=== PATIENT | female | born 1980 | race African-American/Black ===

== ENCOUNTER 2021-08-06 09:42 | Observation (INO) | payer OTHER ==
[2021-07-31 10:30] LABS: Basophils # (Auto) 0.1 K/mm3 (0.0-0.1); Eosinophils # (Auto) 0.2 K/mm3 (0.0-0.4); Eosinophils % (Auto) 3.5 % (0.0-4.3); Hematocrit 33.5 % (30.3-42.9); Hemoglobin 11.1 gm/dl (10.1-14.3); Lymphocytes # (Auto) 1.2 K/mm3 (1.2-5.4); Lymphocytes % (Auto) 21.7 % (13.4-35.0); Mean Corpuscular HGB Conc 33 % (30-34); Mean Corpuscular Volume 86 fl (79-97); Monocytes # (Auto) 0.2 K/mm3 (0.0-0.8); Monocytes % (Auto) 4.6 % (0.0-7.3); Platelet Count 243 K/mm3 (140-440); Red Blood Count 3.91 M/mm3 (3.65-5.03); Red Cell Distribution Width 15.7 % (13.2-15.2)
--- NOTE | 2021-07-31 12:40 | Anesthesia Consultation ---
Anesthesia Consult and Med Hx Date of service: 08/06/21 - Airway Anesthetic Teeth Evaluation: Good, Chipped (cracked/loose lower left wisdom tooth) ROM Head & Neck: Adequate Mental/Hyoid Distance: Adequate Mallampati Class: Class III Intubation Access Assessment: Possibly Difficult - Pulmonary Exam CTA: Yes - Cardiac Exam Cardiac Exam: RRR - Pre-Operative Health Status ASA Pre-Surgery Classification: ASA2 Proposed Anesthetic Plan: General Nerve Block: TAP - Pulmonary Hx Smoking: No Hx Respiratory Symptoms: No - Cardiovascular System Hx Hypertension: No - Central Nervous System CVA: No - Endocrine Hx Renal Disease: No Hx Liver Disease: No (fatty liver) Hx Insulin Dependent Diabetes: No Hx Non-Insulin Dependent Diabetes: No Hx Thyroid Disease: No - Hematic Hx Anemia: Yes (no hx blood transfusion) Hx Sickle Cell Disease: No - Other Systems Hx Obesity: Yes (BMI 32) - Additional Comments Anesthesia Medical History Comments: No hx anesthetic complications. Family in room for Swedish translation per patient request.
--- NOTE | 2021-08-06 07:41 | History and Physical Report ---
History of Present Illness Date of examination: 08/04/21 Chief complaint: Dysfunctional Uterine Bleeding History of present illness: Pt is a 41 year old female who present for definitive management of dysfunctional uterine bleeding and uterine fibroids. She had a benign endometrial biopsy on 05/20/21. Pt desires bilateral salpingo-oophorectomy at the time of hysterectomy. Past History Past Medical History: high cholesterol, hematologic disorders (H/o anemia ) Past Surgical History: myomectomy (myomectomy on 02/20/2019; vaginal approach ) [employer] History: fibroids Family/Genetic History: hypertension, cancer Social history: no significant social history - Obstetrical History : 5 Para: 5 Hx # Term Pregnancies: 5 Number of Pregnancies: 0 Spontaneous Abortions: 0 Induced : 0 Number of Living Children: 5 Medications and Allergies Allergies Allergy/AdvReac Type Severity Reaction Status Date / Time No Known Allergies Allergy Unverified 07/28/21 14:33 Home Medications Medication Instructions Recorded Confirmed Last Taken Type Iron 1 tab PO DAILY 07/28/21 07/28/21 Unknown History Active Meds: Active Medications Acetaminophen (Acetaminophen 500 Mg Tab) 1,000 mg PO PREOP ARSH Celecoxib (Celecoxib 200 Mg Cap) 200 mg PO PREOP NR Stop: 08/06/21 23:59 Fentanyl (Fentanyl 100 Mcg/2 Ml Inj) 100 mcg IV ONCE PRN PRN Reason: sedation for nerve block Gabapentin (Gabapentin 300 Mg Cap) 300 mg PO PREOP NR Stop: 08/06/21 23:59 Lactated Ringer's (Lactated Ringers) 1,000 mls @ 100 mls/hr IV DIRECT ARSH Stop: 08/06/21 23:59 Midazolam HCl (Midazolam 2 Mg/2 Ml Inj) 2 mg IV PREOP NR Stop: 08/06/21 23:59 Scopolamine (Scopolamine Transdermal Patch 72 Hr) 1 each TD PREOP NR Stop: 08/06/21 23:59 Review of Systems All systems: negative - Vital Signs Vital signs: Vital Signs Temp Pulse Resp BP Pulse Ox 98.1 F 77 20 118/70 97 07/31/21 09:45 07/31/21 09:45 07/31/21 09:45 07/31/21 09:45 07/31/21 09:45 Temp Pulse Resp BP Pulse Ox 98.1 F 77 20 118/70 97 07/31/21 09:45 07/31/21 09:45 07/31/21 09:45 07/31/21 09:45 07/31/21 09:45 - Physical Exam Breasts: Positive: deferred Cardiovascular: Regular rate Lungs: Positive: Clear to auscultation Abdomen: Positive: soft (obese) Uterus: Positive: normal size Extremities: Positive: normal Results Result Diagrams: 07/31/21 09:50 All other labs normal. Assessment and Plan A: Dysfunctional Uterine Bleeding Fibroid Uterus Desires concurrent bilateral salpingo-oophorectomy P: Proceed with robotic assisted laparoscopic hysterectomy, bilateral salpingo- oophorectomy, possible exploratory laparotomy and other indicated procedures
[~2021-08-06 09:42] MED LIST: ACETAMINOPHEN 500 MG TAB PO SCH; CELECOXIB 200 MG CAP PO NR; GABAPENTIN 300 MG CAP PO NR; LACTATED RINGERS 1,000 ML IV SCH; MIDAZOLAM 2 MG/2 ML INJ IV NR; SCOPOLAMINE TRANSDERMAL PATCH 72 HR TD NR; ceFAZolin/Water 2 GM/20 ML 2 GM/20 ML SYRINGE IV NR; fentaNYL 100 MCG/2 ML INJ IV PRN
[2021-08-06 10:29] LABS: Blood Urea Nitrogen 11 mg/dL (7-17); Calcium 8.4 mg/dL (8.4-10.2); Hemolysis Index 6
[2021-08-06 10:31] LABS: BUN/Creatinine Ratio 22
[2021-08-06] MEDS ORDERED: BUPIVACAINE/PF (0.25%) 2.5 MG/ML 30 ML VIAL INFILTRATI ONE (10:36)
[2021-08-06] MEDS ORDERED: ONDANSETRON 4 MG/2 ML INJ IV PRN ×2 (10:36→18:00)
[2021-08-06] MEDS ORDERED: dexAMETHasone 4 MG/ML VIAL ONE (10:36)
[2021-08-06] MEDS ORDERED: HYDROmorphone 1 MG/1 ML INJ IV PRN ×2 (10:36)
[2021-08-06] MEDS ORDERED: METHYLENE BLUE 50 MG/10 ML AMP ONE (10:54)
[2021-08-06] MEDS ORDERED: NEOMY 40 MG/POLYMYXIN B 200,000 UNITS/ML (GU) AMPULE IR ONE ×2 (10:54→13:46)
--- NOTE | 2021-08-06 11:00 | Anesthesia Day of Surgery ---
Anesthesia Day of Surgery - Day of Surgery Patient Examined: Yes Patient H&P Reviewed: Yes Patient is NPO: Yes
[2021-08-06] MEDS ORDERED: MIDAZOLAM 2 MG/2 ML INJ IV ONE (11:07)
[2021-08-06] MEDS ORDERED: dexAMETHasone 20 MG/5 ML VIAL ONE (11:23)
[2021-08-06] MEDS ORDERED: ONDANSETRON 4 MG/2 ML INJ ONE (11:23)
[2021-08-06] MEDS ORDERED: SUCCINYLCHOLINE CHLORIDE 200 MG/10 ML INJ MDV ONE (11:23)
[2021-08-06] MEDS ORDERED: ROCURONIUM 50 MG/5 ML INJ IV ONE (11:23)
[2021-08-06] MEDS ORDERED: fentaNYL 100 MCG/2 ML INJ ONE (11:24)
[2021-08-06] MEDS ORDERED: ePHEDrine SULFATE 50 MG/1 ML INJ ONE (11:24)
[2021-08-06] MEDS ORDERED: propofoL 200 MG/20 ML VIAL IV ONE (11:24)
[2021-08-06] MEDS ORDERED: HYDROmorphone 1 MG/1 ML INJ ONE (11:24)
[2021-08-06] MEDS ORDERED: SODIUM CHLORIDE 0.9% IRR 1,500 ML BOTTLE IR ONE (13:45)
[2021-08-06] MEDS ORDERED: SODIUM CHLORIDE 0.9% IRRIG SOLN 2000 ML IR ONE (13:46)
[2021-08-06] MEDS ORDERED: GLYCOPYRROLATE 0.4 MG/2 ML INJ ONE (15:34)
[2021-08-06] MEDS ORDERED: NEOSTIGMINE 10MG/10 ML INJ MDV ONE (15:34)
[2021-08-06] MEDS ORDERED: KETOROLAC 30 MG/1 ML INJ ONE (15:35)
--- NOTE | 2021-08-06 15:40 | Operative Report ---
Operative Report Operative Report: Date of surgery: August 06, 2021 Preoperative Diagnosis: 1) Dysfunctional Uterine Bleeding 2) Fibroid Uterus 3) Obesity Postoperative diagnoses: Same Procedure: Robotic-assisted Total Laparoscopic Hysterectomy with Bilateral Salpingo-Oophorectomy Surgeon: Chayito Pompa M.D. Layer Off: Lexi Pompa Anesthesia: GETA Findings: 1) Anterverted uterus that sounded to 11 cm, boggy 2) Normal appearing ovaries and fallopian tubes Estimated blood loss: 100 mL Drains: Glover to gravity Specimen: Uterus, cervix, bilateral ovaries and fallopian tubes to pathology Complications: None Disposition: PACU Indication: This patient is a 41-year-old female -0-0-5 who presents for definitive management of dysfunctional uterine bleeding and uterine fibroids. Procedure: After the risks, benefits, alternatives, and complications of the procedure were explained to the patient she gave informed consent for the procedure. She was subsequently taken to the operating room where general endotracheal anesthesia was found to be adequate. She was then placed in the dorsal lithotomy position and prepped and draped in a normal sterile fashion. A timeout was performed. A Glover catheter was placed to drain the bladder. A bivalve speculum was placed in the patient's vagina and a single-tooth tenaculum placed on the anterior lip of the cervix for traction. The uterus was sounded to 11 cm. A stay suture with 0-vicryl was placed at 3 o'clock on the anterior cervix. A Callision uterine manipulator was placed, and the bivalve speculum was then removed. A warm laparotomy sponge was then placed in the vagina. Attention was then turned to the patient's abdomen where a 12 mm supraumbilical skin incision was then made. A Veress needle was placed into the peritoneal cavity with entry confirmed with a saline drop test. The peritoneal cavity was then insufflated with CO2 gas to a pressure of 15 mm Hg. The 12 mm trocar was then placed under direct visualization. Two additional 8 mm robotic trocars were placed on the patient's left and right lateral side just opposite of the supraumbilical trocar. An additional 5 mm right lateral trocar was then placed as the accessory port. The supraumbilical 12 mm fascial incision was reapproximated with 0 Vicryl suture using the Grant Medeiros device. The patient was then placed in steep Trendelenburg. The da Lexi robot was then engaged. A fenestrated forcep was placed in arm 2 and a vessel sealer was placed in arm 1. General survey of the abdomen and pelvis revealed an anteverted uterus and normal appearing ovaries and fallopian tubes. The surgeon then transferred to the surgical console. The infudibulopelvic ligament was isolated on the right. The vessel sealer was used to coagulate the infundibulopelvic ligament which was then transected. Next the vessel sealer was used to coagulate and transect the mesosalpinx. The round ligament was then coagulated and transected also. The vesicouterine peritoneum was then entered from the patient's right side. The right uterine vessels were then coagulated and transected with the vessel sealer. Attention was then turned to the patient's left side where the infundibulopelvic ligament and mesosalpinx were again isolated coagulated and transected. The vesicouterine peritoneum was then entered from the left and joined in the midline with the vessel sealer. The peritoneum was reflected off of the lower uterine segment. The left uterine vessels were then coagulated and transected with the vessel sealer. A posterior colpotomy was created with the monopolar scissors. The incision was continued circumferentially until anterior colpotomy was created. The uterus, cervix , ovaries and tubes were then delivered through the vagina and a warm laparotomy sponge was placed in the vagina to maintain the pneumoperitoneum. The vaginal cuff was then reapproximated in a running fashion with V Loc suture. Irrigation of the pelvis was performed. Luc was applied to the vaginal cuff. At this time the procedure was ended. The [employer] robot was undocked. The insuffliation was released and the trocars were removed atraumatically. The skin incisions were then reapproximated with 4-0 Monocryl and skin glue. The patient was then successfully extubated and taken to the PACU in stable condition. All instrument, lap and needle counts were correct x2.
--- NOTE | 2021-08-06 16:38 | Post Anesthesia Evaluation ---
- Post Anesthesia Evaluation Patient Participated: Yes Airway Patent: Yes Stable Respiratory Function: Yes Nausea/Vomiting: No Temp > 96.8F: Yes Pain Manageable: Yes Adequeate Hydration: Yes Anesthesia Complications: No Block Receding Appropriately: Yes Patient on Ventilator: No
[2021-08-06] MEDS ORDERED: NALOXONE 0.4 MG/1 ML INJ IV PRN (18:00)
[2021-08-06] MEDS ORDERED: oxyCODONE /ACETAMINOPHEN 5-325MG TAB PO PRN (18:00)
[2021-08-06] MEDS ORDERED: MORPHINE 2 MG/1 ML INJ IV PRN (18:00)
[2021-08-06] MEDS ORDERED: IBUPROFEN 800 MG TAB PO PRN (18:00)
[2021-08-06] MEDS ORDERED: MORPHINE 4 MG/1 ML INJ IV PRN (18:00)
[2021-08-06] MEDS ORDERED: D5W/0.45% NACL/KCL 20 MEQ 20 MEQ/1,000 ML BAG IV SCH (18:30)
[2021-08-06] MEDS: ceFAZolin/NS 1 GM/50 ML 1 GM/50 ML BAG IV SCH (18:50)
[2021-08-06] MEDS: ACETAMINOPHEN 325 MG TAB PO PRN (21:04)
[2021-08-07] MEDS: ceFAZolin/NS 1 GM/50 ML 1 GM/50 ML BAG IV SCH (01:51)
[2021-08-07] MEDS: ACETAMINOPHEN 325 MG TAB PO PRN (05:29)
[2021-08-07 07:29] LABS: Hematocrit 32.5 % (30.3-42.9); Hemoglobin 10.3 gm/dl (10.1-14.3)
[2021-08-07 07:38] LABS: Blood Urea Nitrogen 10 mg/dL (7-17); Calcium 8.2 mg/dL (8.4-10.2); Hemolysis Index 5
[2021-08-07 07:41] LABS: BUN/Creatinine Ratio 17
--- NOTE | 2021-08-07 09:08 | Post Anesthesia Evaluation ---
- Post Anesthesia Evaluation Patient Participated: Yes Airway Patent: Yes Stable Respiratory Function: Yes Nausea/Vomiting: No Temp > 96.8F: Yes Pain Manageable: Yes Adequeate Hydration: Yes Anesthesia Complications: No Block Receding Appropriately: Yes Patient on Ventilator: No Other Comments: Night went well. No significant pain. Ambulated in the morning, drank 2 cups of water. Started to have some pain in the right upper quadrant. Attending MD at the bedside. Given 4 mg of Morphine IV. Continue observation
--- NOTE | 2021-08-07 09:15 | Progress Note ---
Assessment and Plan A: Postoperative day #1 status post robotic assisted total laparoscopic hysterectomy, bilateral salpingo-oophorectomy Poor pain control Left eye pain P: Optimize pain medication regimen Neurology consult Closely monitor clinical status Subjective - Subjective Date of service: 08/07/21 Principal diagnosis: s/p robotic hysterectomy/BSO Interval history: Immediately prior to entry into the patient room she called out. Upon visualization of the patient she has holding her right hand under her rib cage and saying that she has pain when she takes deep breaths in. Vital signs were taken immediately and are noted to be stable. An EKG was ordered and was noted to be normal. Upon review of the medical record the patient has received no pain medication other than Tylenol since her surgery yesterday. She was given morphine 4 mg IV and was observed at the bedside. She had improvement in her pain after about 10 minutes and was able to speak normally. The patient also reports that yesterday after she woke up from surgery she had edema and pain in the left side of her face surrounding the orbit. Initially she was unable to open her left eye but now she is able to. Patient reports: other (Per HPI) Objective - Vital Signs Latest vital signs: Vital Signs Temp Pulse Resp BP BP Pulse Ox 08/07/21 07:17 98.0 F 89 20 113/65 96 08/07/21 04:37 98.7 F 96 H 18 105/60 95 08/07/21 00:50 98.8 F 112 H 18 100/59 94 08/06/21 20:09 98.9 F 117 H 18 150/90 96 08/06/21 20:00 99 08/06/21 17:15 98.4 F 91 H 18 140/92 99 08/06/21 17:00 98.4 F 89 18 140/92 99 08/06/21 16:45 85 18 150/94 96 08/06/21 16:30 86 17 143/87 100 08/06/21 16:15 78 17 138/85 100 08/06/21 16:04 76 17 134/82 100 08/06/21 15:59 81 16 125/77 100 08/06/21 15:54 98.0 F 97 H 12 116/76 100 08/06/21 12:01 16 08/06/21 12:00 65 16 123/76 100 08/06/21 11:45 66 14 120/82 99 08/06/21 11:19 70 14 127/76 99 08/06/21 11:15 18 08/06/21 11:14 63 16 117/75 99 08/06/21 11:09 76 16 124/72 99 08/06/21 11:04 78 18 128/78 98 08/06/21 10:15 18 08/06/21 10:00 98.1 F 89 18 131/85 98 Intake and Output 08/06/21 08/07/21 08/07/21 22:59 06:59 14:59 Intake Total 50 Output Total 250 800 Balance -200 -800 Intake: IV 50 ANCEF/NS 1 GM/50 ML 1 gm 50 In 50 ml @ 100 mls/hr IV Q8H [facility] Rx#:[id number] Output: Urine 250 800 Indwelling 400 Indwelling Catheter 400 Other: Total, Output Amount 400 Voiding Method Indwelling Catheter Weight 77.111 kg - Exam Breasts: Present: deferred Abdomen: Present: soft, tenderness. Absent: distention Extremities: Present: normal. Absent: edema Incision: Present: intact - Labs Labs: Abnormal lab results 08/06/21 08/07/21 Range/Units 09:55 07:00 Carbon Dioxide 19 L 21 L (22-30) mmol/L Creatinine 0.5 L (0.6-1.2) mg/dL Glucose 119 H 146 H (65-100) mg/dL Calcium 8.2 L (8.4-10.2) mg/dL
--- NOTE | 2021-08-07 10:41 | Electrocardiograph Report ---
[facility] Test Date: 2021-08-06 Test Time: 10:49:04 Pat Name: JESSEE Buckleypartment: Room: 2105 Gender: F Sales Property Manager: MACARENA : 1980 Requested By: ZBIGNIEW LYNN Order Number: [id number] Reading MD: Dread Luo Measurements Intervals Coleman Rate: 73 P: 21 WV: 182 QRS: 3 QRSD: 101 T: 5 QT: 383 QTc: 422 Interpretive Statements Sinus rhythm No previous ECG available for comparison Electronically Signed On 08-07-2021 10:40:53 EST by Dread Luo
[2021-08-07] MEDS: KETOROLAC 30 MG/1 ML INJ IV SCH ×3 (10:53→22:37)
[2021-08-07] MEDS: PANTOPRAZOLE 40 MG INJ IV SCH (10:54)
[2021-08-08] MEDS: KETOROLAC 30 MG/1 ML INJ IV SCH (03:26)
--- NOTE | 2021-08-08 09:02 | Electrocardiograph Report ---
[facility] Test Date: 2021-08-07 Test Time: 08:27:16 Pat Name: JESSEE Buckleypartment: Room: 2105 1 Gender: F Radio Installer: MACARENA : 1980 Requested By: ZBIGNIEW LYNN Order Number: [id number] Reading MD: Dread Luo Measurements Intervals Plessis Rate: 82 P: 30 MS: 183 QRS: 31 QRSD: 90 T: 14 QT: 363 QTc: 423 Interpretive Statements Sinus rhythm Compared to ECG 08/06/2021 10:49:04 No significant changes Electronically Signed On 08-08-2021 9:02:24 EST by Dread Luo
[2021-08-08] MEDS: PANTOPRAZOLE 40 MG INJ IV SCH (10:39)
--- NOTE | 2021-08-08 14:12 | Progress Note ---
Assessment and Plan - Patient Problems (1) Dysfunctional uterine bleeding Current Visit: Yes Status: Acute Plan to address problem: Patient demonstrating clinical improvement Discharge home Subjective - Subjective Date of service: 08/08/21 Principal diagnosis: s/p robotic hysterectomy/BSO Interval history: Patient reports improvement in her pain. She is having minor abdominal pain but is tolerating her diet without complication. Patient reports: appetite normal, voiding normally, pain well controlled Objective - Vital Signs Latest vital signs: Vital Signs Temp Pulse Resp BP Pulse Ox 08/08/21 11:12 98.1 F 82 20 117/82 95 08/08/21 08:42 16 97 08/08/21 07:20 98.1 F 20 129/76 08/08/21 04:45 98.3 F 65 20 118/83 98 08/07/21 23:43 98.4 F 76 20 113/67 96 08/07/21 19:34 98.5 F 78 20 109/72 95 08/07/21 19:30 98 08/07/21 16:12 97.9 F 77 20 95/68 96 Intake and Output 08/07/21 08/08/21 08/08/21 22:59 06:59 14:59 Intake Total 320 100 Output Total 300 Balance 20 100 Intake: Oral 320 100 Output: Urine 300 Indwelling Catheter 300 Other: Total, Intake Amount 120 100 Total, Output Amount 300 Voiding Method Toilet Toilet # Voids Indwelling Catheter 1 Void 1 1 1 - Exam Abdomen: Present: normal appearance, soft
--- NOTE | 2021-08-08 14:14 | Discharge Summary ---
Providers - Providers Date of Admission: 08/06/21 15:44 Date of discharge: 08/08/21 Attending physician: ZBIGNIEW LYNN Primary care physician: JESUS DENSON Hospitalization Reason for admission: other (Dysfunctional uterine bleeding) Procedure: other (Robotic hysterectomy and bilateral salpingo-oophorectomy) Incision: normal Discharge diagnosis: IUP at term delivered (Dysfunctional uterine bleeding) Hospital course: The patient was admitted the day of surgery underwent a robotic hysterectomy. Postoperative course was complicated by difficulty with pain management. The patient subsequently had improvement of symptoms and was discharged home. Condition at discharge: Good Disposition: 01 HOME / SELF CARE / HOMELESS - Discharge Diagnoses (1) Dysfunctional uterine bleeding Status: Acute Plan - Provider Discharge Summary Activity: no sex for 6 weeks, no heavy lifting 4 weeks, no strenuous exercise Diet: routine Instructions: routine Additional instructions: [] Smoking cessation referral if applicable(refer to patient education folder for contact #) [] Refer to [facility] Booklet Call your doctor immediately for: * Fever > 100.5 * Heavy vaginal bleeding ( >1 pad per hour) * Severe persistent headache * Shortness of breath * Reddened, hot, painful area to leg or breast * Schedule postoperative follow-up in 4 weeks - Follow up plan Forms: Work/School Release Form
[2021-08-08 15:59] VITALS: BP 107/74
== END 2021-08-08 14:50 | disposition home or self-care (01) ==
LOC: OR 09:42 → OB 15:44
PROVIDERS: ADMIT Obstetrics & Gynecology; ATTEND Obstetrics & Gynecology
DX: D25.9 Leiomyoma of uterus, unspecified (principal); Z20.822 Contact with and (suspected) exposure to COVID-19; N93.8 Other specified abnormal uterine and vaginal bleeding; E66.9 Obesity, unspecified; E78.00 Pure hypercholesterolemia, unspecified; H57.12 Ocular pain, left eye; Z79.899 Other long term (current) drug therapy; Z98.890 Other specified postprocedural states; Z68.33 Body mass index [BMI] 33.0-33.9, adult
CPT/HCPCS: 36415; 58573; 64450; 80048; 84703; 85014; 85018; 85025; 86850; 86900; 86901; 88307; 93005; 96365; 96366; 96375; 96376; C9113; G0378; J0330; J0690; J1100; J1170; J1815; J1885; J2250; J2270; J2405; J2704; J2710; J3010; J3480; J3490; J7120; Q9968; S2900; U0003

== ENCOUNTER 2022-01-18 22:35 | Emergency (ER) | payer SELFPAY ==
[2022-01-18] MEDS ORDERED: TETANUS,DIPHTHERIA TOXOID ADULT 0.5 ML INJ IM ONE (23:39)
[2022-01-18] MEDS ORDERED: ACETAMINOPHEN 325 MG TAB PO ONE (23:39)
[2022-01-19] MEDS ORDERED: TETANUS,DIPH,PERTUSS(ACELL) VACCINE 0.5 ML SYRINGE IM ONE (01:52)
[2022-01-19] MEDS ORDERED: KETOROLAC 10 MG TAB PO ONE (01:52)
[2022-01-19] MEDS ORDERED: AMOXICILLIN/K CLAV 875/125MG TAB PO ONE (01:52)
--- NOTE | 2022-01-19 03:14 | Emergency Department Report ---
ED Animal Bite HPI - General Chief Complaint: Laceration/Recheck/Suture Stated Complaint: DOG BITE TORE FINGER Time Seen by Provider: 01/19/22 00:40 Source: patient Mode of arrival: Ambulatory Limitations: Language Barrier - History of Present Illness Initial Comments: 41 yo female with PMH of gallstones presents to the ed foir evaluation after dogbite. She states that she was bitten by her own dog whose shoys are not up to date, but she is not concerned about rabies. She presents with wound to left ring finger. MD Complaint: animal bite -: Sudden Left: Hand (left ring finger) Animal: dog Animal Control Notified: No Description: household pet Mechanism: bite Severity scale (0 -10): 8 Context: playing with animal, provoked Associated Symptoms: bleeding Treatments Prior to Arrival: pressure - Related Data Patient Tetanus UTD: No Home Medications Medication Instructions Recorded Confirmed Last Taken Iron 1 tab PO DAILY 07/28/21 07/28/21 Unknown Previous Rx's Medication Instructions Recorded Last Taken Type Docusate Sodium [Colace] 100 mg PO BID PRN #30 capsule 08/08/21 Unknown Rx Ibuprofen [Motrin] 800 mg PO Q8HR PRN #60 tablet 08/08/21 Unknown Rx oxyCODONE /ACETAMINOPHEN [Percocet 1 tab PO Q6HR PRN #30 tablet 08/08/21 Unknown Rx 5/325] Acetaminophen/Codeine [Tylenol 1 tab PO Q6H PRN #12 tab 01/19/22 Unknown Rx /Codeine # 3 tab] Amoxicillin/Potassium Clav 1 each PO BID 7 Days #14 tab 01/19/22 Unknown Rx [Augmentin 875-125 Tablet] Ibuprofen [Motrin 600 MG tab] 600 mg PO Q8H PRN #21 tablet 01/19/22 Unknown Rx Allergies Allergy/AdvReac Type Severity Reaction Status Date / Time No Known Allergies Allergy Unverified 07/28/21 14:33 ED Review of Systems ROS: Stated complaint: DOG BITE TORE FINGER Other details as noted in HPI Comment: All other systems reviewed and negative Constitutional: denies: chills, fever ENT: denies: congestion Respiratory: denies: cough, shortness of breath Cardiovascular: denies: chest pain, palpitations, dyspnea on exertion Gastrointestinal: denies: abdominal pain, nausea, vomiting Musculoskeletal: denies: back pain ED Past Medical Hx - Past Medical History Hx Hypertension: No Hx Heart Attack/AMI: No Hx Congestive Heart Failure: No Hx Diabetes: No Hx GERD: Yes Hx Liver Disease: No (fatty liver) Hx Renal Disease: No Hx Sickle Cell Disease: No Hx Arthritis: Yes (HANDS AND BONES) Hx Seizures: No Hx Kidney Stones: No Hx Asthma: No Hx COPD: No Hx Tuberculosis: No Hx HIV: No - Social History Smoking Status: Never Smoker - Medications Home Medications: Home Medications Medication Instructions Recorded Confirmed Last Taken Type Iron 1 tab PO DAILY 07/28/21 07/28/21 Unknown History Docusate Sodium [Colace] 100 mg PO BID PRN #30 capsule 08/08/21 Unknown Rx Ibuprofen [Motrin] 800 mg PO Q8HR PRN #60 tablet 08/08/21 Unknown Rx oxyCODONE /ACETAMINOPHEN [Percocet 1 tab PO Q6HR PRN #30 tablet 08/08/21 Unknown Rx 5/325] Acetaminophen/Codeine [Tylenol 1 tab PO Q6H PRN #12 tab 01/19/22 Unknown Rx /Codeine # 3 tab] Amoxicillin/Potassium Clav 1 each PO BID 7 Days #14 tab 01/19/22 Unknown Rx [Augmentin 875-125 Tablet] Ibuprofen [Motrin 600 MG tab] 600 mg PO Q8H PRN #21 tablet 01/19/22 Unknown Rx ED Physical Exam - General Limitations: Language Barrier General appearance: alert, in no apparent distress - Head Head exam: Absent: atraumatic, normocephalic - Eye Eye exam: Present: normal appearance. Absent: scleral icterus - Neck Neck exam: Present: normal inspection - Respiratory Respiratory exam: Absent: respiratory distress - Cardiovascular Cardiovascular Exam: Present: regular rate - GI/Abdominal GI/Abdominal exam: Present: distended - Extremities Exam Extremities exam: Absent: normal inspection - Expanded Upper Extremity Exam Left Hand Wrist exam: Present: normal inspection, swelling, laceration, amputation (partial amputation of tip of left ring finger. ) Vascular: Present: radial pulse. Absent: vascular compromise - Back Exam Back exam: Present: normal inspection - Neurological Exam Neurological exam: Present: alert, oriented X3, normal gait - Psychiatric Psychiatric exam: Present: normal affect, normal mood - Skin Skin exam: Present: warm, dry, normal color ED Course Vital Signs 05/01/22 05/02/22 23:41 03:26 Temperature 97.8 F Pulse Rate 87 80 Respiratory 18 14 Rate Blood Pressure 131/96 137/92 [Right] O2 Sat by Pulse 97 100 Oximetry - Laceration /Wound Repair Left Finger Wound Location: upper extremity (tip of left ring finger) Wound's Depth, Shape: flap Wound Explored: no foreign body removed Irrigated w/ Saline (ccs): 100 Betadine Prep?: No Anesthesia: 1% Lidocaine Volume Anesthetic (ccs): 4 Wound Repaired With: sutures Suture Size/Type: 5:0, proline Number of Sutures: 5 Layer Closure?: Yes Deep Layer Suture Size/Type: 3:0 (Vicryl) Number Deep Layer Sutures: 4 (placed in fingernail) Sterile Dressing Applied?: Yes Progress: After irrigation and anesthesis, finger partial amputation/flap was repaired with 5 suture around finger then 4 inside the nailbed to repair fingernail. Sterile dressing then finger splint then placed. Patient tolerated well. - Nerve Block Consent Obtained: verbal consent Time Out Performed: Yes Local Anesthetic Used: Lidocaine 1% Amount of anesthesia used: 4 Side: left Nerve Blocks: digital Procedure Successful: Yes Complications: none Patient Tolerated Procedure: well, no complications - Orthopedic Splinting/Casting Injury #1 Side: left Upper Extremity Injury Location: finger Upper Extremity Immobilizer: aluminum form splint Critical care attestation.: If time is entered above; I have spent that time in minutes in the direct care of this critically ill patient, excluding procedure time. ED Disposition Clinical Impression: Open wound of left ring finger due to dog bite Disposition: 01 HOME / SELF CARE / HOMELESS Is pt being admited?: No Does the pt Need Aspirin: No Condition: Stable Instructions: Animal Bite, Adult, [id number], Sutured Wound Care, [id number] Additional Instructions: Take medications as prescribed. Follow-up with hand surgeon for further evaluation and management. Keep sutures in the skin in in place for 7 to 10 days then have removed. Let stitches in the nailbed dissolve. Return to the emergency department as needed. Prescriptions: Amoxicillin/Potassium Clav [Augmentin 875-125 Tablet] 1 each PO BID 7 Days #14 tab Ibuprofen [Motrin 600 MG tab] 600 mg PO Q8H PRN #21 tablet PRN Reason: Pain Acetaminophen/Codeine [Tylenol /Codeine # 3 tab] 1 tab PO Q6H PRN #12 tab PRN Reason: Pain , Severe (7-10) Referrals: Patricia Pompa [Other] - 3-5 Days Forms: Work/School Release Form(ED) Time of Disposition: 03:17 Medical Decision Making - [facility] 41 yo female with PMH of gallstones presents to the ed foir evaluation after dogbite. She states that she was bitten by her own dog whose shoys are not up to date, but she is not concerned about rabies. She presents with wound to left ring finger. Noted to have dog bite to left ring finger that is noted to be partial amputation with flap in place and damage to nailbed. Wound irrigated and sutured including sutures inside of nailbed. Patient's Tdap was updated and she was treated with Augmentin, toradol, and percocet in ed. She will be d/tiarra home with 7 day coarse of Augmentin along with naprosyn and Tylenol #3 for pain. She is advised to take medications as prescribed, monitor for signs of infection, return in 7-10 days for suture removal, and follow up with hand surgeon for further evaluation. She verbalized understanding of and agreement with plan of care.
[2022-01-19 03:29] VITALS: BP 137/92
== END 2022-01-19 03:54 | disposition home or self-care (01) ==
LOC: ED 22:35
DX: S61.205A Unspecified open wound of left ring finger without damage to nail, initial encounter (principal); W54.0XXA Bitten by dog, initial encounter; Y93.89 Activity, other specified; Y92.89 Other specified places as the place of occurrence of the external cause; Y99.8 Other external cause status
CPT/HCPCS: 90471; 90714; 90715; 99282